=== PATIENT | male | born 1965 | race Hispanic/Latino ===

== ENCOUNTER 2018-11-09 20:26 | Emergency (ER) | payer SELFPAY ==
[~2018-11-09 20:26] MED LIST: LEVO500T2 PO
[2018-11-09] MEDS ORDERED: CEPHALEXIN 500 MG CAPSULE ONE (20:58)
[2018-11-09] MEDS ORDERED: SULFAMETHOX-TMP DS 800/160 TAB ONE (20:58)
[2018-11-09] MEDS ORDERED: HYDROCODONE/ACETAMINOPHEN 10/325 MG TAB ONE (20:59)
== END 2018-11-09 21:52 | disposition home or self-care (01) ==
LOC: EDH 20:26
DX: N49.2 Inflammatory disorders of scrotum (principal); I10 Essential (primary) hypertension; E11.9 Type 2 diabetes mellitus without complications; E66.01 Morbid (severe) obesity due to excess calories; Z68.44 Body mass index [BMI] 60.0-69.9, adult; Z72.0 Tobacco use

== ENCOUNTER 2019-09-27 16:49 | Emergency (ER) | payer SELFPAY ==
[2019-09-27 17:37] LABS: BASOPHILS % (AUTO) 1.1 % (0.0-5.0); HEMATOCRIT 41.9 % (42-54); LYMPHOCYTES % (AUTO) 32.3 % (21.0-51.0); MEAN CORPUSCULAR HEMOGLOBIN 35.2 pg (27.0-33.0); MEAN CORPUSCULAR HGB CONC 35.1 g/dL (32.0-36.0); MEAN CORPUSCULAR VOLUME 100.3 fL (79-99); MONOCYTES % (AUTO) 7.1 % (3.0-13.0); NEUTROPHILS % (AUTO) 57.5 % (40.0-77.0); NUCLEATED RED BLOOD CELLS 0.2 % (0.0-0.19); PLATELET COUNT (AUTO) 97 K/uL (130-400); RED BLOOD CELL COUNT(AUTO) 4.18 MIL/uL (4.50-6.20); RED CELL DISTRIBUTION WIDTH 15.1 % (11.0-15.5); WHITE BLOOD COUNT (AUTO) 6.7 K/uL (4.8-10.8)
[2019-09-27 17:47] LABS: CREATININE 1.3 mg/dL (0.5-1.5); POTASSIUM 4.6 mmol/L (3.5-5.1)
[2019-09-27 17:49] LABS: INR 1.02 (0.85-1.15); PARTIAL THROMBOPLASTIN TIME 25.4 SEC (26.3-35.5); PROTHROMBIN TIME 10.7 SEC (9.6-11.6)
[2019-09-27] MEDS ORDERED: IOHEXOL-350 75 ML VIAL IV ONE (17:53)
== END 2019-09-27 19:52 | disposition home or self-care (01) ==
LOC: EDH 16:49
DX: K42.9 Umbilical hernia without obstruction or gangrene (principal); E11.9 Type 2 diabetes mellitus without complications; I10 Essential (primary) hypertension; E66.01 Morbid (severe) obesity due to excess calories; Z72.0 Tobacco use; Z68.44 Body mass index [BMI] 60.0-69.9, adult
CPT/HCPCS: 36415; 74177; 80048; 85025; 85610; 85730; 99285; Q9967

== ENCOUNTER 2021-03-12 08:17 | Inpatient (IN) | payer OTHER, SELFPAY ==
[~2021-03-12] VITALS: Ht 154.9 cm; Wt 226.8 kg
[2021-03-12 08:35] LABS: BASOPHILS % (AUTO) 0.4 % (0.0-5.0); EOSINOPHILS % (AUTO) 0.6 % (0.0-8.0); HEMATOCRIT 36.4 % (42-54); LYMPHOCYTES % (AUTO) 7.4 % (21.0-51.0); MEAN CORPUSCULAR HGB CONC 33.2 g/dL (32.0-36.0); MEAN CORPUSCULAR VOLUME 99.2 fL (79-99); MONOCYTES % (AUTO) 5.8 % (3.0-13.0); PLATELET COUNT (AUTO) 72 K/uL (130-400); RED BLOOD CELL COUNT(AUTO) 3.67 MIL/uL (4.50-6.20); RED CELL DISTRIBUTION WIDTH 16.2 % (11.0-15.5); WHITE BLOOD COUNT (AUTO) 14.1 K/uL (4.8-10.8)
[2021-03-12 08:45] LABS: BILIRUBIN,TOTAL 1.2 mg/dL (0.2-1.0); CREATININE 1.9 mg/dL (0.5-1.5); POTASSIUM 3.9 mmol/L (3.5-5.1)
[2021-03-12] MEDS ORDERED: VANCOMYCIN 1G/250ML KIT 250 ML IV ONE ×2 (09:08→10:06)
[2021-03-12] MEDS ORDERED: ZOSYN 3.375GM+NS 50ML 50 ML IV ONE (09:08)
[2021-03-12] MEDS ORDERED: 0.9%NACL 1000ML 1,000 ML IV ONE (09:37)
[2021-03-12] MEDS ORDERED: VANCOMYCIN 1G/250ML KIT 250 ML IV SCH ×2 (09:45→13:30)
[2021-03-12] MEDS ORDERED: LACTULOSE 20 GM/30 ML UDCUP PO PRN (13:30)
[2021-03-12] MEDS ORDERED: ACETAMINOPHEN WITH CODEINE 1 TAB TAB PO PRN (13:30)
[2021-03-12] MEDS ORDERED: RENAL DOSE IV SCH (13:30)
[2021-03-12] MEDS ORDERED: ACETAMINOPHEN 325 MG TAB PO PRN ×2 (13:30)
[2021-03-12] MEDS ORDERED: VANCOMYCIN PROTOCOL PER PHARMACY IV PRN (13:30)
[2021-03-12] MEDS ORDERED: ONDANSETRON 4MG INJ IV PRN (13:30)
[2021-03-12] MEDS ORDERED: COMPOUND IV REFRIGERATED 1 EACH IVSOLN MISC PRN (16:30)
[2021-03-12] MEDS: INSULIN HUMULIN R 100 UNIT/ML 3ML SQ SCH ×2 (16:30→21:00)
[2021-03-12] MEDS ORDERED: VANCOMYCIN 1G 1.5 GM in 0.9% NACL 250ML 250 ML IV ONE (16:30)
[2021-03-12 16:50] VITALS: BP 92/62
[2021-03-12] MEDS: CEFEPIME HCL 2 GM VIAL IVP SCH (17:05)
[2021-03-12 20:00] VITALS: BP 85/51
[2021-03-12] MEDS: TERBINAFINE HCL 15 GM TUBE TP SCH (21:00)
[2021-03-12] MEDS: FAMOTIDINE 20MG TAB PO SCH (21:07)
[2021-03-12] MEDS: ACETAMINOPHEN WITH CODEINE 1 TAB TAB PO PRN (21:16)
[2021-03-13 00:23] VITALS: BP 76/40
[2021-03-13] MEDS: CEFEPIME HCL 2 GM VIAL IVP SCH ×2 (02:48→13:23)
[2021-03-13 04:55] VITALS: BP 132/68
[2021-03-13 05:50] LABS: BASOPHILS % (AUTO) 0.4 % (0.0-5.0); HEMATOCRIT 36.8 % (42-54); LYMPHOCYTES % (AUTO) 15.1 % (21.0-51.0); MEAN CORPUSCULAR HEMOGLOBIN 32.1 pg (27.0-33.0); MEAN CORPUSCULAR HGB CONC 31.3 g/dL (32.0-36.0); MEAN CORPUSCULAR VOLUME 102.8 fL (79-99); MONOCYTES % (AUTO) 5.9 % (3.0-13.0); NEUTROPHILS % (AUTO) 76.2 % (40.0-77.0); PLATELET COUNT (AUTO) 67 K/uL (130-400); RED BLOOD CELL COUNT(AUTO) 3.58 MIL/uL (4.50-6.20); RED CELL DISTRIBUTION WIDTH 16.4 % (11.0-15.5)
[2021-03-13] MEDS: INSULIN HUMULIN R 100 UNIT/ML 3ML SQ SCH ×4 (07:30→20:18)
[2021-03-13 08:00] VITALS: BP 139/62
[2021-03-13 08:24] LABS: CREATININE 2.1 mg/dL (0.5-1.5); POTASSIUM 4.6 mmol/L (3.5-5.1)
[2021-03-13] MEDS: TERBINAFINE HCL 15 GM TUBE TP SCH ×2 (09:00→20:36)
[2021-03-13] MEDS: ENOXAPARIN SODIUM 40 MG/0.4 ML SYRINGE SQ SCH (09:00)
[2021-03-13] MEDS ORDERED: VANCOMYCIN 750MG + NS 250 ML IV SCH ×2 (09:00)
[2021-03-13] MEDS: FLUCONAZOLE 200 MG/NS 100 ML 100 ML IV SCH (10:39)
[2021-03-13] MEDS ORDERED: 0.9%NACL 1000ML 1,000 ML IV ONE (10:45)
[2021-03-13 11:53] VITALS: BP 94/64
[2021-03-13 16:00] VITALS: BP 117/39
[2021-03-13] MEDS ORDERED: METF-446 PO (19:40)
[2021-03-13] MEDS ORDERED: ATOR10TA69 PO (19:40)
[2021-03-13] MEDS ORDERED: LISI20TA24 PO (19:40)
[2021-03-13] MEDS ORDERED: FOLI1 PO (19:40)
[2021-03-13] MEDS ORDERED: ASPI-1197 PO (19:40)
[2021-03-13 20:00] VITALS: BP 114/73
[2021-03-13] MEDS: FAMOTIDINE 20MG TAB PO SCH (20:21)
[2021-03-14] VITALS (7 sets, daily range): BP systolic 95–130; BP diastolic 45–69
[2021-03-14] MEDS: CEFEPIME HCL 2 GM VIAL IVP SCH ×2 (01:35→15:36)
[2021-03-14] MEDS: INSULIN HUMULIN R 100 UNIT/ML 3ML SQ SCH ×4 (05:11→20:18)
[2021-03-14 05:21] LABS: BASOPHILS % (AUTO) 0.7 % (0.0-5.0); EOSINOPHILS % (AUTO) 1.1 % (0.0-8.0); HEMATOCRIT 33.6 % (42-54); LYMPHOCYTES % (AUTO) 15.1 % (21.0-51.0); MEAN CORPUSCULAR HEMOGLOBIN 32.5 pg (27.0-33.0); MEAN CORPUSCULAR HGB CONC 32.1 g/dL (32.0-36.0); MEAN CORPUSCULAR VOLUME 101.2 fL (79-99); MONOCYTES % (AUTO) 7.9 % (3.0-13.0); NEUTROPHILS % (AUTO) 74.5 % (40.0-77.0); PLATELET COUNT (AUTO) 49 K/uL (130-400); RED BLOOD CELL COUNT(AUTO) 3.32 MIL/uL (4.50-6.20); RED CELL DISTRIBUTION WIDTH 16.3 % (11.0-15.5); WHITE BLOOD COUNT (AUTO) 7.2 K/uL (4.8-10.8)
[2021-03-14 05:33] LABS: CREATININE 1.6 mg/dL (0.5-1.5); POTASSIUM 4.6 mmol/L (3.5-5.1)
[2021-03-14 05:53] LABS: CRP QUANTITATIVE 175.3 mg/L (0.00-9.0)
[2021-03-14 07:23] LABS: CHOLESTEROL 114 mg/dL (<200); HDL CHOLESTEROL 13 mg/dL (29-71); LDL DIRECT 67 mg/dL (0-99); TRIGLYCERIDES 110 mg/dL (30-200)
[2021-03-14] MEDS: ENOXAPARIN SODIUM 40 MG/0.4 ML SYRINGE SQ SCH (09:00)
[2021-03-14] MEDS: LISINOPRIL 20 MG TABLET PO SCH (09:00)
[2021-03-14] MEDS: ASPIRIN 81MG CHEW TAB PO SCH (09:00)
[2021-03-14] MEDS: FLUCONAZOLE 200 MG/NS 100 ML 100 ML IV SCH (09:57)
[2021-03-14] MEDS: FOLIC ACID 1 MG TABLET PO SCH (09:57)
[2021-03-14] MEDS: TERBINAFINE HCL 15 GM TUBE TP SCH ×2 (09:58→20:13)
[2021-03-14] MEDS: VANCOMYCIN 1G 1.75 GM in 0.9% NACL 250ML 250 ML IV SCH (09:59)
[2021-03-14] MEDS ORDERED: HONEY 1 APPL/ML TUBE TP ONE (13:43)
[2021-03-14] MEDS: ATORVASTATIN 10 MG TABLET PO SCH (20:12)
[2021-03-14] MEDS: FAMOTIDINE 20MG TAB PO SCH (20:12)
[2021-03-15] MEDS: CEFEPIME HCL 2 GM VIAL IVP SCH ×2 (02:13→13:30)
[2021-03-15 04:00] VITALS: BP 100/50
[2021-03-15 05:27] LABS: BASOPHILS % (AUTO) 0.6 % (0.0-5.0); EOSINOPHILS % (AUTO) 1.9 % (0.0-8.0); LYMPHOCYTES % (AUTO) 21.4 % (21.0-51.0); MEAN CORPUSCULAR HEMOGLOBIN 32.9 pg (27.0-33.0); MEAN CORPUSCULAR HGB CONC 32.4 g/dL (32.0-36.0); MEAN CORPUSCULAR VOLUME 101.8 fL (79-99); MONOCYTES % (AUTO) 9.8 % (3.0-13.0); NEUTROPHILS % (AUTO) 65.9 % (40.0-77.0); PLATELET COUNT (AUTO) 54 K/uL (130-400); RED BLOOD CELL COUNT(AUTO) 3.34 MIL/uL (4.50-6.20); RED CELL DISTRIBUTION WIDTH 16.5 % (11.0-15.5); WHITE BLOOD COUNT (AUTO) 4.7 K/uL (4.8-10.8)
[2021-03-15 05:49] LABS: CREATININE 1.3 mg/dL (0.5-1.5); CRP QUANTITATIVE 174.9 mg/L (0.00-9.0); POTASSIUM 4.7 mmol/L (3.5-5.1)
[2021-03-15] MEDS: INSULIN HUMULIN R 100 UNIT/ML 3ML SQ SCH ×4 (07:30→21:07)
[2021-03-15 08:00] VITALS: BP 126/72
[2021-03-15] MEDS: ENOXAPARIN SODIUM 40 MG/0.4 ML SYRINGE SQ SCH (09:00)
[2021-03-15] MEDS: FOLIC ACID 1 MG TABLET PO SCH (09:31)
[2021-03-15] MEDS: ASPIRIN 81MG CHEW TAB PO SCH (09:31)
[2021-03-15] MEDS: LISINOPRIL 20 MG TABLET PO SCH (09:31)
[2021-03-15] MEDS: TERBINAFINE HCL 15 GM TUBE TP SCH ×2 (09:32→21:04)
[2021-03-15] MEDS: FLUCONAZOLE 200 MG/NS 100 ML 100 ML IV SCH (09:32)
[2021-03-15] MEDS: HONEY 1 APPL/ML TUBE TP SCH (09:33)
[2021-03-15] MEDS: VANCOMYCIN 1G 1.75 GM in 0.9% NACL 250ML 250 ML IV SCH (09:38)
[2021-03-15 12:00] VITALS: BP 111/67
[2021-03-15] MEDS ORDERED: DIATR MEGLU/DIATRIZOATE SODIUM 30 ML BOTTLE ONE (15:10)
[2021-03-15 16:00] VITALS: BP 125/75
[2021-03-15] MEDS ORDERED: IOHEXOL 350 MG/ML 100ML INFUS..BTL IV ONE (17:28)
[2021-03-15 19:15] VITALS: BP 106/82
[2021-03-15] MEDS: FAMOTIDINE 20MG TAB PO SCH (20:57)
[2021-03-15] MEDS: ATORVASTATIN 10 MG TABLET PO SCH (20:57)
[2021-03-15] MEDS: ACETAMINOPHEN WITH CODEINE 1 TAB TAB PO PRN (21:04)
[2021-03-15 23:55] VITALS: BP 86/52
[2021-03-16] MEDS: CEFEPIME HCL 2 GM VIAL IVP SCH ×2 (02:18→13:45)
[2021-03-16 04:09] VITALS: BP 114/61
[2021-03-16] MEDS: INSULIN HUMULIN R 100 UNIT/ML 3ML SQ SCH ×4 (07:30→21:00)
[2021-03-16 08:00] VITALS: BP 97/46
[2021-03-16] MEDS: FOLIC ACID 1 MG TABLET PO SCH (08:39)
[2021-03-16] MEDS: ASPIRIN 81MG CHEW TAB PO SCH (08:39)
[2021-03-16] MEDS: FLUCONAZOLE 200 MG/NS 100 ML 100 ML IV SCH (08:39)
[2021-03-16] MEDS: LISINOPRIL 20 MG TABLET PO SCH (08:39)
[2021-03-16] MEDS: ENOXAPARIN SODIUM 40 MG/0.4 ML SYRINGE SQ SCH (08:48)
[2021-03-16] MEDS: TERBINAFINE HCL 15 GM TUBE TP SCH ×2 (08:48→21:29)
[2021-03-16] MEDS: HONEY 1 APPL/ML TUBE TP SCH (08:50)
[2021-03-16] MEDS: VANCOMYCIN 1G 1.75 GM in 0.9% NACL 250ML 250 ML IV SCH (08:53)
[2021-03-16] MEDS ORDERED: VANCOMYCIN 1G 1.25 GM in 0.9% NACL 250ML 250 ML IV SCH (09:45)
[2021-03-16 11:45] VITALS: BP 102/52
[2021-03-16 16:00] VITALS: BP 104/57
[2021-03-16] MEDS: ATORVASTATIN 10 MG TABLET PO SCH (21:28)
[2021-03-16] MEDS: FAMOTIDINE 20MG TAB PO SCH (21:28)
[2021-03-16 23:52] VITALS: BP 120/59
[2021-03-17] MEDS: CEFEPIME HCL 2 GM VIAL IVP SCH ×2 (02:40→13:32)
[2021-03-17 03:58] VITALS: BP 120/56
[2021-03-17] MEDS: INSULIN HUMULIN R 100 UNIT/ML 3ML SQ SCH ×4 (05:37→20:58)
[2021-03-17 07:07] VITALS: BP 109/58
[2021-03-17] MEDS: ENOXAPARIN SODIUM 40 MG/0.4 ML SYRINGE SQ SCH (09:00)
[2021-03-17] MEDS: LISINOPRIL 20 MG TABLET PO SCH (09:49)
[2021-03-17] MEDS: FLUCONAZOLE 200 MG/NS 100 ML 100 ML IV SCH (09:49)
[2021-03-17] MEDS: ASPIRIN 81MG CHEW TAB PO SCH (09:49)
[2021-03-17] MEDS: FOLIC ACID 1 MG TABLET PO SCH (09:49)
[2021-03-17] MEDS: VANCOMYCIN 1G 1.25 GM in 0.9% NACL 250ML 250 ML IV SCH ×2 (09:57→20:57)
[2021-03-17] MEDS: TERBINAFINE HCL 15 GM TUBE TP SCH ×2 (10:25→21:00)
[2021-03-17] MEDS: HONEY 1 APPL/ML TUBE TP SCH (10:26)
[2021-03-17 10:43] VITALS: BP 130/69
[2021-03-17 15:44] VITALS: BP 110/51
[2021-03-17 20:00] VITALS: BP 109/57
[2021-03-17] MEDS: FAMOTIDINE 20MG TAB PO SCH (20:57)
[2021-03-17] MEDS: ATORVASTATIN 10 MG TABLET PO SCH (20:57)
[2021-03-18 00:50] VITALS: BP 95/56
[2021-03-18] MEDS: CEFEPIME HCL 2 GM VIAL IVP SCH ×2 (01:30→13:06)
[2021-03-18 04:58] LABS: BASOPHILS % (AUTO) 1.1 % (0.0-5.0); EOSINOPHILS % (AUTO) 2.2 % (0.0-8.0); LYMPHOCYTES % (AUTO) 26.8 % (21.0-51.0); MEAN CORPUSCULAR HGB CONC 32.8 g/dL (32.0-36.0); MEAN CORPUSCULAR VOLUME 100.6 fL (79-99); MONOCYTES % (AUTO) 9.2 % (3.0-13.0); NEUTROPHILS % (AUTO) 59.9 % (40.0-77.0); PLATELET COUNT (AUTO) 70 K/uL (130-400); RED BLOOD CELL COUNT(AUTO) 3.18 MIL/uL (4.50-6.20); RED CELL DISTRIBUTION WIDTH 15.9 % (11.0-15.5); WHITE BLOOD COUNT (AUTO) 3.6 K/uL (4.8-10.8)
[2021-03-18 05:21] LABS: CREATININE 1.2 mg/dL (0.5-1.5); CRP QUANTITATIVE 89.6 mg/L (0.00-9.0); POTASSIUM 4.3 mmol/L (3.5-5.1)
[2021-03-18 05:58] VITALS: BP 120/59
[2021-03-18] MEDS: INSULIN HUMULIN R 100 UNIT/ML 3ML SQ SCH ×4 (06:53→21:00)
[2021-03-18 07:00] LABS: ERYTHROCYTE SEDIMENTATION RATE 75 MM/HR (0-20)
[2021-03-18] MEDS: FLUCONAZOLE 200 MG/NS 100 ML 100 ML IV SCH (07:15)
[2021-03-18] MEDS: VANCOMYCIN 1G 1.25 GM in 0.9% NACL 250ML 250 ML IV SCH ×2 (07:16→19:17)
[2021-03-18] MEDS: LISINOPRIL 20 MG TABLET PO SCH (07:16)
[2021-03-18] MEDS: ENOXAPARIN SODIUM 40 MG/0.4 ML SYRINGE SQ SCH (07:16)
[2021-03-18] MEDS: TERBINAFINE HCL 15 GM TUBE TP SCH ×2 (07:16→22:33)
[2021-03-18] MEDS: FOLIC ACID 1 MG TABLET PO SCH (07:16)
[2021-03-18] MEDS: ASPIRIN 81MG CHEW TAB PO SCH (07:16)
[2021-03-18] MEDS: HONEY 1 APPL/ML TUBE TP SCH (07:17)
[2021-03-18 07:30] VITALS: BP 105/57
[2021-03-18 11:00] VITALS: BP 95/56
[2021-03-18] MEDS ORDERED: VANCOMYCIN 750MG + NS 250 ML IV SCH ×2 (15:45)
[2021-03-18 16:00] VITALS: BP 144/51
[2021-03-18] MEDS: ATORVASTATIN 10 MG TABLET PO SCH (19:16)
[2021-03-18] MEDS: FAMOTIDINE 20MG TAB PO SCH (19:16)
[2021-03-18] MEDS: ACETAMINOPHEN WITH CODEINE 1 TAB TAB PO PRN (19:24)
[2021-03-18 20:00] VITALS: BP 115/60
[2021-03-19 00:01] VITALS: BP 100/54
[2021-03-19] MEDS: CEFEPIME HCL 2 GM VIAL IVP SCH ×2 (01:00→12:22)
[2021-03-19 04:10] VITALS: BP 106/50
[2021-03-19 05:09] LABS: EOSINOPHILS % (AUTO) 2.7 % (0.0-8.0); HEMATOCRIT 30.5 % (42-54); LYMPHOCYTES % (AUTO) 31.9 % (21.0-51.0); MEAN CORPUSCULAR HEMOGLOBIN 33.2 pg (27.0-33.0); MEAN CORPUSCULAR HGB CONC 32.8 g/dL (32.0-36.0); MEAN CORPUSCULAR VOLUME 101.3 fL (79-99); MONOCYTES % (AUTO) 10.1 % (3.0-13.0); NEUTROPHILS % (AUTO) 53.6 % (40.0-77.0); PLATELET COUNT (AUTO) 72 K/uL (130-400); RED BLOOD CELL COUNT(AUTO) 3.01 MIL/uL (4.50-6.20); RED CELL DISTRIBUTION WIDTH 15.9 % (11.0-15.5)
[2021-03-19 05:21] LABS: CREATININE 1.1 mg/dL (0.5-1.5); POTASSIUM 4.1 mmol/L (3.5-5.1)
[2021-03-19 05:40] LABS: BAND NEUTROPHILS % (MANUAL) 5 % (0-2); BASOPHILS % (MANUAL) 2 % (0-2); EOSINOPHILS % (MANUAL) 1 % (1-6); LYMPHOCYTES % (MANUAL) 30 % (22-44); MAN.DIFF COMMENT-IMPRESSION MANUAL DIFFERENTIAL; METAMYELOCYTES % 1 % (0-0); MONOCYTES % (MANUAL) 6 % (2-9); SEGMENTED NEUTROPHILS % 55 % (40-70)
[2021-03-19] MEDS: INSULIN HUMULIN R 100 UNIT/ML 3ML SQ SCH ×4 (06:08→21:00)
[2021-03-19] MEDS: LISINOPRIL 20 MG TABLET PO SCH (07:01)
[2021-03-19] MEDS: ASPIRIN 81MG CHEW TAB PO SCH (07:01)
[2021-03-19] MEDS: FOLIC ACID 1 MG TABLET PO SCH (07:01)
[2021-03-19] MEDS: ENOXAPARIN SODIUM 40 MG/0.4 ML SYRINGE SQ SCH (07:01)
[2021-03-19] MEDS: VANCOMYCIN 1G 1.25 GM in 0.9% NACL 250ML 250 ML IV SCH ×2 (07:02→21:12)
[2021-03-19] MEDS: FLUCONAZOLE 200 MG/NS 100 ML 100 ML IV SCH (07:02)
[2021-03-19] MEDS: TERBINAFINE HCL 15 GM TUBE TP SCH ×2 (07:02→21:11)
[2021-03-19] MEDS: HONEY 1 APPL/ML TUBE TP SCH (07:02)
[2021-03-19 07:30] VITALS: BP 105/60
[2021-03-19 12:00] VITALS: BP 111/70
[2021-03-19] MEDS: ACETAMINOPHEN WITH CODEINE 1 TAB TAB PO PRN (12:22)
[2021-03-19 16:00] VITALS: BP 96/52
[2021-03-19 20:00] VITALS: BP 140/50
[2021-03-19] MEDS: FAMOTIDINE 20MG TAB PO SCH (21:11)
[2021-03-19] MEDS: ATORVASTATIN 10 MG TABLET PO SCH (21:11)
[2021-03-20] VITALS: BP 106/52
[2021-03-20] MEDS: CEFEPIME HCL 2 GM VIAL IVP SCH ×2 (00:08→13:11)
[2021-03-20 04:00] VITALS: BP 96/60
[2021-03-20] MEDS: ACETAMINOPHEN WITH CODEINE 1 TAB TAB PO PRN (04:07)
[2021-03-20 05:53] LABS: BASOPHILS % (AUTO) 1.3 % (0.0-5.0); EOSINOPHILS % (AUTO) 2.5 % (0.0-8.0); HEMATOCRIT 31.2 % (42-54); LYMPHOCYTES % (AUTO) 31.3 % (21.0-51.0); MEAN CORPUSCULAR HEMOGLOBIN 32.1 pg (27.0-33.0); MEAN CORPUSCULAR HGB CONC 31.7 g/dL (32.0-36.0); MEAN CORPUSCULAR VOLUME 101.3 fL (79-99); MONOCYTES % (AUTO) 8.8 % (3.0-13.0); NEUTROPHILS % (AUTO) 55.5 % (40.0-77.0); PLATELET COUNT (AUTO) 81 K/uL (130-400); RED BLOOD CELL COUNT(AUTO) 3.08 MIL/uL (4.50-6.20); RED CELL DISTRIBUTION WIDTH 15.9 % (11.0-15.5); WHITE BLOOD COUNT (AUTO) 3.2 K/uL (4.8-10.8)
[2021-03-20 06:08] LABS: POTASSIUM 4.2 mmol/L (3.5-5.1)
[2021-03-20] MEDS: INSULIN HUMULIN R 100 UNIT/ML 3ML SQ SCH ×4 (06:41→21:00)
[2021-03-20 07:55] VITALS: BP 104/63
[2021-03-20] MEDS: VANCOMYCIN 1G 1.25 GM in 0.9% NACL 250ML 250 ML IV SCH ×2 (08:35→21:10)
[2021-03-20] MEDS: FOLIC ACID 1 MG TABLET PO SCH (08:35)
[2021-03-20] MEDS: FAMOTIDINE 20MG TAB PO SCH ×2 (08:36→21:10)
[2021-03-20] MEDS: ENOXAPARIN SODIUM 40 MG/0.4 ML SYRINGE SQ SCH (08:39)
[2021-03-20] MEDS: LISINOPRIL 20 MG TABLET PO SCH (08:39)
[2021-03-20] MEDS: ASPIRIN 81MG CHEW TAB PO SCH (08:40)
[2021-03-20] MEDS: HONEY 1 APPL/ML TUBE TP SCH (09:37)
[2021-03-20] MEDS: TERBINAFINE HCL 15 GM TUBE TP SCH ×2 (09:37→22:02)
[2021-03-20] MEDS: FLUCONAZOLE 200 MG/NS 100 ML 100 ML IV SCH (09:40)
[2021-03-20 11:28] VITALS: BP 116/54
[2021-03-20 16:00] VITALS: BP 108/48
[2021-03-20 17:35] LABS: % IRON SATURATION 15.9 % (30-44)
[2021-03-20 20:51] VITALS: BP 108/38
[2021-03-20] MEDS: ATORVASTATIN 10 MG TABLET PO SCH (21:09)
[2021-03-21] VITALS (7 sets, daily range): BP systolic 89–133; BP diastolic 45–73
[2021-03-21] MEDS: CEFEPIME HCL 2 GM VIAL IVP SCH ×2 (02:15→14:39)
[2021-03-21] MEDS: INSULIN HUMULIN R 100 UNIT/ML 3ML SQ SCH ×4 (06:10→21:00)
[2021-03-21 06:19] LABS: BASOPHILS % (AUTO) 1.4 % (0.0-5.0); EOSINOPHILS % (AUTO) 2.5 % (0.0-8.0); HEMATOCRIT 33.3 % (42-54); LYMPHOCYTES % (AUTO) 33.3 % (21.0-51.0); MEAN CORPUSCULAR HEMOGLOBIN 32.3 pg (27.0-33.0); MEAN CORPUSCULAR HGB CONC 32.1 g/dL (32.0-36.0); MEAN CORPUSCULAR VOLUME 100.6 fL (79-99); MONOCYTES % (AUTO) 8.1 % (3.0-13.0); NEUTROPHILS % (AUTO) 54.4 % (40.0-77.0); PLATELET COUNT (AUTO) 92 K/uL (130-400); RED BLOOD CELL COUNT(AUTO) 3.31 MIL/uL (4.50-6.20); RED CELL DISTRIBUTION WIDTH 15.8 % (11.0-15.5); WHITE BLOOD COUNT (AUTO) 3.6 K/uL (4.8-10.8)
[2021-03-21 06:28] LABS: CREATININE 1.1 mg/dL (0.5-1.5); POTASSIUM 4.1 mmol/L (3.5-5.1)
[2021-03-21] MEDS: ENOXAPARIN SODIUM 40 MG/0.4 ML SYRINGE SQ SCH (09:00)
[2021-03-21] MEDS: LISINOPRIL 20 MG TABLET PO SCH (09:00)
[2021-03-21] MEDS: FOLIC ACID 1 MG TABLET PO SCH (09:48)
[2021-03-21] MEDS: FLUCONAZOLE 200 MG/NS 100 ML 100 ML IV SCH (09:48)
[2021-03-21] MEDS: ASPIRIN 81MG CHEW TAB PO SCH (09:48)
[2021-03-21] MEDS: VANCOMYCIN 1G 1.25 GM in 0.9% NACL 250ML 250 ML IV SCH ×2 (09:50→21:09)
[2021-03-21] MEDS: HONEY 1 APPL/ML TUBE TP SCH (10:39)
[2021-03-21] MEDS: TERBINAFINE HCL 15 GM TUBE TP SCH ×2 (14:40→21:10)
[2021-03-21] MEDS: FAMOTIDINE 20MG TAB PO SCH (21:08)
[2021-03-21] MEDS: ATORVASTATIN 10 MG TABLET PO SCH (21:09)
[2021-03-22] MEDS: CEFEPIME HCL 2 GM VIAL IVP SCH ×2 (02:06→13:53)
[2021-03-22 03:51] VITALS: BP 126/67
[2021-03-22] MEDS: INSULIN HUMULIN R 100 UNIT/ML 3ML SQ SCH ×2 (06:37→11:30)
[2021-03-22 08:00] VITALS: BP 99/59
[2021-03-22 08:16] LABS: BASOPHILS % (AUTO) 1.1 % (0.0-5.0); EOSINOPHILS % (AUTO) 1.9 % (0.0-8.0); LYMPHOCYTES % (AUTO) 29.8 % (21.0-51.0); MEAN CORPUSCULAR HGB CONC 33.1 g/dL (32.0-36.0); MEAN CORPUSCULAR VOLUME 99.7 fL (79-99); MONOCYTES % (AUTO) 8.9 % (3.0-13.0); PLATELET COUNT (AUTO) 93 K/uL (130-400); RED BLOOD CELL COUNT(AUTO) 3.21 MIL/uL (4.50-6.20); RED CELL DISTRIBUTION WIDTH 15.7 % (11.0-15.5); WHITE BLOOD COUNT (AUTO) 3.7 K/uL (4.8-10.8)
[2021-03-22 08:23] LABS: POTASSIUM 4.2 mmol/L (3.5-5.1)
[2021-03-22] MEDS: ENOXAPARIN SODIUM 40 MG/0.4 ML SYRINGE SQ SCH (09:00)
[2021-03-22] MEDS: HONEY 1 APPL/ML TUBE TP SCH ×2 (09:00→18:30)
[2021-03-22] MEDS: VANCOMYCIN 1G 1.25 GM in 0.9% NACL 250ML 250 ML IV SCH (09:00)
[2021-03-22] MEDS: TERBINAFINE HCL 15 GM TUBE TP SCH (09:00)
[2021-03-22] MEDS: LISINOPRIL 20 MG TABLET PO SCH (09:00)
[2021-03-22] MEDS: ASPIRIN 81MG CHEW TAB PO SCH (11:16)
[2021-03-22] MEDS: FOLIC ACID 1 MG TABLET PO SCH (11:16)
[2021-03-22] MEDS: FLUCONAZOLE 200 MG/NS 100 ML 100 ML IV SCH (11:17)
[2021-03-22 12:20] VITALS: BP 90/60
[2021-03-22] MEDS ORDERED: CEPH500B PO (15:08)
[2021-03-22] MEDS ORDERED: DOXY100T2 PO (15:08)
[2021-03-22 16:00] VITALS: BP 108/65
== END 2021-03-22 18:45 | disposition home or self-care (01) | DRG 602 ==
LOC: EDH 08:17 → EDHIP 08:18 → 3BH 16:27
PROVIDERS: ADMIT Internal Medicine; ATTEND Internal Medicine
DX: L03.116 Cellulitis of left lower limb (principal); E43 Unspecified severe protein-calorie malnutrition; E87.2 Acidosis; L97.329 Non-pressure chronic ulcer of left ankle with unspecified severity; Z68.45 Body mass index [BMI] 70 or greater, adult; E11.622 Type 2 diabetes mellitus with other skin ulcer; I89.0 Lymphedema, not elsewhere classified; I87.309 Chronic venous hypertension (idiopathic) without complications of unspecified lower extremity; D72.819 Decreased white blood cell count, unspecified; I10 Essential (primary) hypertension; I87.8 Other specified disorders of veins; F17.210 Nicotine dependence, cigarettes, uncomplicated; K43.9 Ventral hernia without obstruction or gangrene; E66.01 Morbid (severe) obesity due to excess calories; K42.9 Umbilical hernia without obstruction or gangrene; D53.9 Nutritional anemia, unspecified; R53.81 Other malaise; R74.8 Abnormal levels of other serum enzymes; S90.822A Blister (nonthermal), left foot, initial encounter; X58.XXXA Exposure to other specified factors, initial encounter; D69.6 Thrombocytopenia, unspecified; J98.6 Disorders of diaphragm; L02.416 Cutaneous abscess of left lower limb; R16.2 Hepatomegaly with splenomegaly, not elsewhere classified; E78.5 Hyperlipidemia, unspecified; Z20.822 Contact with and (suspected) exposure to COVID-19; Z79.899 Other long term (current) drug therapy; Z79.82 Long term (current) use of aspirin; Z82.0 Family history of epilepsy and other diseases of the nervous system; Z83.3 Family history of diabetes mellitus; Y93.89 Activity, other specified; Y92.89 Other specified places as the place of occurrence of the external cause; Y99.8 Other external cause status
CPT/HCPCS: 36415; 70450; 71045; 73600; 74177; 80048; 80053; 80061; 80202; 82728; 82948; 83540; 83550; 83605; 84145; 84484; 85025; 85651; 86140; 87040; 87426; 93005; 93971; G0378; J0692; J1450; J1650; J1815; J2543; J3370; J7030; J7050; Q9963; Q9967; U0003

== ENCOUNTER 2021-05-11 23:25 | Inpatient (IN) | payer OTHER ==
[~2021-05-11] VITALS: Ht 180.3 cm; Wt 226.8 kg
[~2021-05-11 23:25] MED LIST changes: +ASPI-1197 PO; +ATOR10TA69 PO; +CEPH500B PO; +DOXY100T2 PO; +FOLI1 PO; -LEVO500T2 PO; +LISI20TA24 PO; +METF-446 PO
[2021-05-12] VITALS (10 sets, daily range): BP systolic 87–119; BP diastolic 9–65
[2021-05-12] MEDS ORDERED: CEFTRIAXONE IV ONE (01:30)
[2021-05-12] MEDS ORDERED: LACTATED RINGERS 1000ML 1,000 ML IV ONE (01:30)
[2021-05-12] MEDS ORDERED: ACETAMINOPHEN 500 MG TABLET PO ONE (01:30)
[2021-05-12] MEDS ORDERED: SODIUM CHLORIDE 0.9% IV ONE (01:30)
[2021-05-12 01:46] LABS: ABG HCO3 22.9 mmol/L (21.0-28.0); ABG OXYGEN SATURATION 93.3 % (95.0-99.0); ABG PCO2 40 mmHg (35-48)
[2021-05-12 01:48] LABS: APPEARANCE,URINE Turbid (CLEAR); BILIRUBIN,URINE Moderate (NEGATIVE); COLOR,URINE Dark Yellow (YELLOW); GLUCOSE, URINE (UA) Negative (NEGATIVE); KETONES,URINE Trace mg/dL (NEGATIVE); LEUKOCYTE ESTERASE ,URINE Large (NEGATIVE); NITRATE,URINE Negative (NEGATIVE); OCCULT BLOOD,URINE Large (NEGATIVE); PROTEIN,URINE 300 mg/dL (NEGATIVE)
[2021-05-12 01:58] LABS: RBC,URINE TNTC /HPF (0-1); WBC,URINE TNTC /HPF (0-1)
[2021-05-12 01:59] LABS: BACTERIA,URINE Moderate /HPF (None Seen); SQUAMOUS EPITHELIAL CELL,UR 0-2 /HPF (0-2)
[2021-05-12] MEDS ORDERED: ACETAMINOPHEN 500 MG TABLET ONE (03:11)
[2021-05-12] MEDS ORDERED: CEFTRIAXONE 2GM VIAL ONE (03:11)
[2021-05-12] MEDS ORDERED: SODIUM CHLORIDE 0.9% 100 ML ONE (03:12)
[2021-05-12 03:15] LABS: BASOPHILS % (AUTO) 0.5 % (0.0-5.0); EOSINOPHILS % (AUTO) 0.5 % (0.0-8.0); HEMATOCRIT 32.9 % (42-54); MEAN CORPUSCULAR HGB CONC 31.6 g/dL (32.0-36.0); MEAN CORPUSCULAR VOLUME 104.4 fL (79-99); MONOCYTES % (AUTO) 5.9 % (3.0-13.0); NEUTROPHILS % (AUTO) 84.5 % (40.0-77.0); PLATELET COUNT (AUTO) 63 K/uL (130-400); RED BLOOD CELL COUNT(AUTO) 3.15 MIL/uL (4.50-6.20); RED CELL DISTRIBUTION WIDTH 16.4 % (11.0-15.5); WHITE BLOOD COUNT (AUTO) 8.4 K/uL (4.8-10.8)
[2021-05-12 03:22] LABS: CREATININE 1.8 mg/dL (0.5-1.5); POTASSIUM 4.1 mmol/L (3.5-5.1)
[2021-05-12 03:27] LABS: BILIRUBIN,TOTAL 1.1 mg/dL (0.2-1.0); TOTAL PROTEIN, SERUM 6.8 g/dL (6.0-8.3)
[2021-05-12 03:42] LABS: INR 1.17 (0.85-1.15); PROTHROMBIN TIME 12.6 SEC (9.6-11.6)
[2021-05-12] MEDS ORDERED: AZITHROMYCIN 500MG VIAL IVPB ONE (03:45)
[2021-05-12] MEDS ORDERED: 0.9% SODIUM CHLORIDE 250 ML IV BAG IV ONE (03:45)
[2021-05-12 03:57] LABS: PLATELET MORPHOLOGY COMMENT MARKED DECREASE
[2021-05-12] MEDS ORDERED: AZITHROMYCIN 500MG+NS 250ML 250 ML IV ONE (04:06)
[2021-05-12] MEDS ORDERED: ACETAMINOPHEN 325 MG TAB PO PRN ×2 (04:45)
[2021-05-12] MEDS: CEFTRIAXONE 1G VIAL IV SCH (04:45)
[2021-05-12] MEDS ORDERED: AZITHROMYCIN 500MG VIAL IVPB SCH ×2 (04:45→09:15)
[2021-05-12] MEDS ORDERED: 0.9% SODIUM CHLORIDE 250 ML IV BAG IVPB SCH ×2 (04:45→09:15)
[2021-05-12] MEDS ORDERED: ONDANSETRON 4MG INJ IV PRN (04:45)
[2021-05-12] MEDS: SODIUM CHLORIDE 0.9% 1000ML 1,000 ML IV SCH ×2 (04:45→21:48)
[2021-05-12] MEDS ORDERED: MORPHINE 2 MG SYG (2MG/1ML) IV PRN (04:45)
[2021-05-12] MEDS ORDERED: AZITHROMYCIN 500MG+NS 250ML 250 ML IV SCH (05:06)
[2021-05-12 06:50] LABS: BASOPHILS % (AUTO) 0.4 % (0.0-5.0); EOSINOPHILS % (AUTO) 0.3 % (0.0-8.0); HEMATOCRIT 32.9 % (42-54); LYMPHOCYTES % (AUTO) 6.8 % (21.0-51.0); MEAN CORPUSCULAR HEMOGLOBIN 32.7 pg (27.0-33.0); MEAN CORPUSCULAR HGB CONC 31.6 g/dL (32.0-36.0); MEAN CORPUSCULAR VOLUME 103.5 fL (79-99); NEUTROPHILS % (AUTO) 85.5 % (40.0-77.0); PLATELET COUNT (AUTO) 58 K/uL (130-400); RED BLOOD CELL COUNT(AUTO) 3.18 MIL/uL (4.50-6.20); RED CELL DISTRIBUTION WIDTH 16.4 % (11.0-15.5); WHITE BLOOD COUNT (AUTO) 11.5 K/uL (4.8-10.8)
[2021-05-12 07:06] LABS: HEMOGLOBIN A1C 6.5 % (4.0-6.0)
[2021-05-12 07:09] LABS: CREATININE 1.7 mg/dL (0.5-1.5); CRP QUANTITATIVE 68.7 mg/L (0.00-9.0); POTASSIUM 4.6 mmol/L (3.5-5.1); TOTAL PROTEIN, SERUM 7.2 g/dL (6.0-8.3)
[2021-05-12] MEDS ORDERED: GUAIFENESIN-CODEINE 5 ML SYRUP PO PRN (07:15)
[2021-05-12] MEDS ORDERED: SODIUM CHLORIDE 0.9% 1000ML 1,000 ML IV ONE (13:59)
[2021-05-12] MEDS: ENOXAPARIN SODIUM 40 MG/0.4 ML SYRINGE SQ SCH (14:13)
[2021-05-12] MEDS: FAMOTIDINE 20MG TAB 20 MG TAB PO SCH ×2 (14:13→21:48)
[2021-05-12] MEDS: AZITHROMYCIN 500MG+NS 250ML 250 ML IV SCH (14:14)
[2021-05-13] VITALS (8 sets, daily range): BP systolic 107–166; BP diastolic 59–116
[2021-05-13] MEDS: SODIUM CHLORIDE 0.9% 1000ML 1,000 ML IV SCH ×3 (00:45→20:45)
[2021-05-13] MEDS ORDERED: CEFD300C3 PO (06:08)
[2021-05-13] MEDS ORDERED: GUAI5SYR PO (06:13)
[2021-05-13] MEDS ORDERED: GLUCAGON 1MG KIT 1 MG ML IM PRN (06:15)
[2021-05-13] MEDS ORDERED: DEXTROSE 50%-WATER 50 ML DISP.SYRIN IV PRN (06:15)
[2021-05-13] MEDS: CEFTRIAXONE 1G VIAL IV SCH (06:15)
[2021-05-13 06:21] LABS: BASOPHILS % (AUTO) 0.9 % (0.0-5.0); EOSINOPHILS % (AUTO) 2.4 % (0.0-8.0); HEMATOCRIT 35.3 % (42-54); LYMPHOCYTES % (AUTO) 21.1 % (21.0-51.0); MEAN CORPUSCULAR HEMOGLOBIN 32.2 pg (27.0-33.0); MEAN CORPUSCULAR HGB CONC 30.6 g/dL (32.0-36.0); MEAN CORPUSCULAR VOLUME 105.4 fL (79-99); MONOCYTES % (AUTO) 9.5 % (3.0-13.0); NEUTROPHILS % (AUTO) 65.7 % (40.0-77.0); PLATELET COUNT (AUTO) 65 K/uL (130-400); RED BLOOD CELL COUNT(AUTO) 3.35 MIL/uL (4.50-6.20); RED CELL DISTRIBUTION WIDTH 16.7 % (11.0-15.5); WHITE BLOOD COUNT (AUTO) 6.7 K/uL (4.8-10.8)
[2021-05-13 06:29] LABS: CREATININE 1.6 mg/dL (0.5-1.5); POTASSIUM 4.4 mmol/L (3.5-5.1)
[2021-05-13] MEDS: INSULIN HUMULIN R 100 UNIT/ML 3ML SQ SCH ×4 (07:30→21:00)
[2021-05-13] MEDS: ASPIRIN 81MG CHEW TAB PO SCH (09:27)
[2021-05-13] MEDS: FOLIC ACID 1 MG TABLET PO SCH (09:27)
[2021-05-13] MEDS: LISINOPRIL 20 MG TABLET PO SCH (09:27)
[2021-05-13] MEDS: AZITHROMYCIN 500MG+NS 250ML 250 ML IV SCH (09:27)
[2021-05-13] MEDS: ENOXAPARIN SODIUM 40 MG/0.4 ML SYRINGE SQ SCH (09:27)
[2021-05-13] MEDS: FAMOTIDINE 20MG TAB 20 MG TAB PO SCH ×2 (09:27→22:15)
[2021-05-13] MEDS: ATORVASTATIN 10 MG TABLET PO SCH (22:15)
[2021-05-14 04:18] VITALS: BP 133/53
[2021-05-14] MEDS: CEFTRIAXONE 1G VIAL IV SCH (05:14)
[2021-05-14] MEDS: INSULIN HUMULIN R 100 UNIT/ML 3ML SQ SCH ×4 (05:23→20:38)
[2021-05-14] MEDS: SODIUM CHLORIDE 0.9% 1000ML 1,000 ML IV SCH ×2 (06:45→16:45)
[2021-05-14 08:00] VITALS: BP 122/67
[2021-05-14] MEDS ORDERED: SODIUM CHLORIDE 0.9% 250 ML ONE (10:11)
[2021-05-14] MEDS: FOLIC ACID 1 MG TABLET PO SCH (10:12)
[2021-05-14] MEDS: ASPIRIN 81MG CHEW TAB PO SCH (10:12)
[2021-05-14] MEDS: AZITHROMYCIN 500MG+NS 250ML 250 ML IV SCH (10:12)
[2021-05-14] MEDS: FAMOTIDINE 20MG TAB 20 MG TAB PO SCH ×2 (10:12→20:37)
[2021-05-14] MEDS: LISINOPRIL 20 MG TABLET PO SCH (10:13)
[2021-05-14] MEDS: ENOXAPARIN SODIUM 40 MG/0.4 ML SYRINGE SQ SCH (10:13)
[2021-05-14 12:00] VITALS: BP 139/89
[2021-05-14 16:00] VITALS: BP 140/75
[2021-05-14 20:12] VITALS: BP 148/81
[2021-05-14] MEDS: ATORVASTATIN 10 MG TABLET PO SCH (20:37)
[2021-05-14 23:35] VITALS: BP 127/79
[2021-05-15 04:18] LABS: EOSINOPHILS % (AUTO) 3.8 % (0.0-8.0); HEMATOCRIT 33.3 % (42-54); LYMPHOCYTES % (AUTO) 30.4 % (21.0-51.0); MEAN CORPUSCULAR HEMOGLOBIN 32.7 pg (27.0-33.0); MEAN CORPUSCULAR HGB CONC 31.8 g/dL (32.0-36.0); MEAN CORPUSCULAR VOLUME 102.8 fL (79-99); MONOCYTES % (AUTO) 6.6 % (3.0-13.0); NEUTROPHILS % (AUTO) 57.9 % (40.0-77.0); PLATELET COUNT (AUTO) 72 K/uL (130-400); RED BLOOD CELL COUNT(AUTO) 3.24 MIL/uL (4.50-6.20); WHITE BLOOD COUNT (AUTO) 3.9 K/uL (4.8-10.8)
[2021-05-15] MEDS: CEFTRIAXONE 1G VIAL IV SCH (04:24)
[2021-05-15 04:34] LABS: ALBUMIN 2.1 g/dL (3.5-5.0); BILIRUBIN,TOTAL 0.9 mg/dL (0.2-1.0); CREATININE 1.3 mg/dL (0.5-1.5); POTASSIUM 4.3 mmol/L (3.5-5.1); TOTAL PROTEIN, SERUM 7.6 g/dL (6.0-8.3)
[2021-05-15 04:46] VITALS: BP 117/57
[2021-05-15] MEDS: INSULIN HUMULIN R 100 UNIT/ML 3ML SQ SCH ×4 (07:30→20:31)
[2021-05-15 07:37] VITALS: BP 124/62
[2021-05-15] MEDS ORDERED: SODIUM CHLORIDE 0.9% 250 ML ONE (08:21)
[2021-05-15] MEDS: ENOXAPARIN SODIUM 40 MG/0.4 ML SYRINGE SQ SCH (08:48)
[2021-05-15] MEDS: FOLIC ACID 1 MG TABLET PO SCH (08:48)
[2021-05-15] MEDS: FAMOTIDINE 20MG TAB 20 MG TAB PO SCH ×2 (08:48→20:31)
[2021-05-15] MEDS: AZITHROMYCIN 500MG+NS 250ML 250 ML IV SCH (08:48)
[2021-05-15] MEDS: ASPIRIN 81MG CHEW TAB PO SCH (08:48)
[2021-05-15 10:59] VITALS: BP 125/54
[2021-05-15 16:03] VITALS: BP 127/58
[2021-05-15 19:00] VITALS: BP 136/65
[2021-05-15] MEDS: ATORVASTATIN 10 MG TABLET PO SCH (20:31)
[2021-05-15 23:47] VITALS: BP 146/69
[2021-05-16 04:00] VITALS: BP 141/75
[2021-05-16 05:08] LABS: BASOPHILS % (AUTO) 0.6 % (0.0-5.0); EOSINOPHILS % (AUTO) 3.7 % (0.0-8.0); HEMATOCRIT 31.6 % (42-54); LYMPHOCYTES % (AUTO) 31.2 % (21.0-51.0); MEAN CORPUSCULAR HEMOGLOBIN 31.7 pg (27.0-33.0); MEAN CORPUSCULAR HGB CONC 31.3 g/dL (32.0-36.0); MEAN CORPUSCULAR VOLUME 101.3 fL (79-99); MONOCYTES % (AUTO) 9.7 % (3.0-13.0); NEUTROPHILS % (AUTO) 54.5 % (40.0-77.0); PLATELET COUNT (AUTO) 68 K/uL (130-400); RED BLOOD CELL COUNT(AUTO) 3.12 MIL/uL (4.50-6.20); RED CELL DISTRIBUTION WIDTH 15.9 % (11.0-15.5); WHITE BLOOD COUNT (AUTO) 3.2 K/uL (4.8-10.8)
[2021-05-16 05:26] LABS: CREATININE 1.2 mg/dL (0.5-1.5); POTASSIUM 4.2 mmol/L (3.5-5.1); TOTAL PROTEIN, SERUM 7.3 g/dL (6.0-8.3)
[2021-05-16] MEDS: INSULIN HUMULIN R 100 UNIT/ML 3ML SQ SCH ×3 (06:12→20:31)
[2021-05-16] MEDS: CEFTRIAXONE 1G VIAL IV SCH (06:13)
[2021-05-16 07:11] VITALS: BP 132/75
[2021-05-16 11:24] VITALS: BP 118/59
[2021-05-16] MEDS: FOLIC ACID 1 MG TABLET PO SCH (11:27)
[2021-05-16] MEDS: ASPIRIN 81MG CHEW TAB PO SCH (11:27)
[2021-05-16] MEDS: FAMOTIDINE 20MG TAB 20 MG TAB PO SCH ×2 (11:27→20:21)
[2021-05-16] MEDS: ENOXAPARIN SODIUM 40 MG/0.4 ML SYRINGE SQ SCH (11:28)
[2021-05-16] MEDS: AZITHROMYCIN 500MG+NS 250ML 250 ML IV SCH (11:28)
[2021-05-16 15:14] VITALS: BP 116/61
[2021-05-16 20:00] VITALS: BP 124/83
[2021-05-16] MEDS: ATORVASTATIN 10 MG TABLET PO SCH (20:21)
[2021-05-17] VITALS: BP 159/80
[2021-05-17 04:00] VITALS: BP 110/56
[2021-05-17] MEDS: CEFTRIAXONE 1G VIAL IV SCH (04:21)
[2021-05-17 05:13] LABS: BASOPHILS % (AUTO) 0.6 % (0.0-5.0); EOSINOPHILS % (AUTO) 4.4 % (0.0-8.0); HEMATOCRIT 30.7 % (42-54); LYMPHOCYTES % (AUTO) 28.8 % (21.0-51.0); MEAN CORPUSCULAR HEMOGLOBIN 32.1 pg (27.0-33.0); MEAN CORPUSCULAR HGB CONC 31.9 g/dL (32.0-36.0); MEAN CORPUSCULAR VOLUME 100.7 fL (79-99); MONOCYTES % (AUTO) 9.7 % (3.0-13.0); NEUTROPHILS % (AUTO) 56.2 % (40.0-77.0); PLATELET COUNT (AUTO) 64 K/uL (130-400); RED BLOOD CELL COUNT(AUTO) 3.05 MIL/uL (4.50-6.20); RED CELL DISTRIBUTION WIDTH 15.6 % (11.0-15.5); WHITE BLOOD COUNT (AUTO) 3.2 K/uL (4.8-10.8)
[2021-05-17 05:49] LABS: BILIRUBIN,TOTAL 0.9 mg/dL (0.2-1.0); CREATININE 1.1 mg/dL (0.5-1.5); TOTAL PROTEIN, SERUM 7.3 g/dL (6.0-8.3)
[2021-05-17] MEDS: INSULIN HUMULIN R 100 UNIT/ML 3ML SQ SCH (06:35)
[2021-05-17 08:00] VITALS: BP 110/66
[2021-05-17] MEDS: ENOXAPARIN SODIUM 40 MG/0.4 ML SYRINGE SQ SCH (09:00)
[2021-05-17] MEDS: ASPIRIN 81MG CHEW TAB PO SCH (09:29)
[2021-05-17] MEDS: FAMOTIDINE 20MG TAB 20 MG TAB PO SCH (09:29)
[2021-05-17] MEDS: FOLIC ACID 1 MG TABLET PO SCH (09:29)
[2021-05-17 11:57] VITALS: BP 135/77
== END 2021-05-17 12:00 | disposition home or self-care (01) | DRG 689 ==
LOC: EDH 05-12 00:21 → EDHIP 05-12 00:22 → 2DH 05-13 13:39 → 3AH 05-15 10:43
PROVIDERS: ADMIT Internal Medicine; ATTEND Internal Medicine
DX: N39.0 Urinary tract infection, site not specified (principal); J18.9 Pneumonia, unspecified organism; Z68.44 Body mass index [BMI] 60.0-69.9, adult; N17.9 Acute kidney failure, unspecified; E66.01 Morbid (severe) obesity due to excess calories; Z20.822 Contact with and (suspected) exposure to COVID-19; I10 Essential (primary) hypertension; E11.9 Type 2 diabetes mellitus without complications; F17.200 Nicotine dependence, unspecified, uncomplicated; Z82.0 Family history of epilepsy and other diseases of the nervous system; E78.5 Hyperlipidemia, unspecified; B96.4 Proteus (mirabilis) (morganii) as the cause of diseases classified elsewhere; Z91.19 Patient's noncompliance with other medical treatment and regimen
CPT/HCPCS: 36415; 36600; 71045; 71250; 80048; 80053; 81001; 82803; 82948; 83036; 83605; 83690; 83880; 84145; 85025; 85610; 86140; 86850; 86900; 86901; 87040; 87077; 87088; 87186; 87635; 87804; 87880; 93005; C9803; G0378; J0456; J0696; J1650; J1815; J7030; J7050

== ENCOUNTER 2022-05-21 22:32 | Inpatient (IN) | payer OTHER ==
[~2022-05-21] VITALS: Ht 177.8 cm; Wt 233.6 kg
[~2022-05-21 22:32] MED LIST changes: +CEFD300C3 PO; -CEPH500B PO; -DOXY100T2 PO; +GUAI5SYR PO
[2022-05-22] VITALS (46 sets, daily range): BP systolic 54–154; BP diastolic 26–97
[2022-05-22] MEDS ORDERED: 0.9%NACL 1000ML 1,000 ML IV ONE
[2022-05-22] MEDS ORDERED: ZOSYN 3.375GM +NS 50ML IV SCH
[2022-05-22] MEDS ORDERED: VANCOMYCIN 1G VIAL IVPB ONE
[2022-05-22 00:28] LABS: CREATININE 2.9 mg/dL (0.5-1.5); POTASSIUM 3.9 mmol/L (3.5-5.1)
[2022-05-22 00:30] LABS: BASOPHILS % (AUTO) 0.4 % (0.0-5.0); EOSINOPHILS % (AUTO) 0.3 % (0.0-8.0); HEMATOCRIT 29.2 % (42-54); LYMPHOCYTES % (AUTO) 9.2 % (21.0-51.0); MEAN CORPUSCULAR HEMOGLOBIN 35.3 pg (27.0-33.0); MEAN CORPUSCULAR HGB CONC 32.9 g/dL (32.0-36.0); MEAN CORPUSCULAR VOLUME 107.4 fL (79-99); MONOCYTES % (AUTO) 2.8 % (3.0-13.0); NEUTROPHILS % (AUTO) 86.9 % (40.0-77.0); PLATELET COUNT (AUTO) 69 K/uL (130-400); RED BLOOD CELL COUNT(AUTO) 2.72 MIL/uL (4.50-6.20); RED CELL DISTRIBUTION WIDTH 14.7 % (11.0-15.5); WHITE BLOOD COUNT (AUTO) 7.6 K/uL (4.8-10.8)
[2022-05-22 00:37] LABS: ALBUMIN 1.7 g/dL (3.5-5.0); BILIRUBIN,TOTAL 1.5 mg/dL (0.2-1.0); TOTAL PROTEIN, SERUM 6.4 g/dL (6.0-8.3)
[2022-05-22 00:38] LABS: ABG BASE EXCESS -8.7 mmol/L (-2.0-3.0); ABG HCO3 15.2 mmol/L (21.0-28.0); ABG OXYGEN SATURATION 94.7 % (95.0-99.0); ABG PCO2 26 mmHg (35-48)
[2022-05-22 00:41] LABS: B-TYPE NATRIURETIC PEPTIDE 59 pg/mL (0-100)
[2022-05-22] MEDS ORDERED: ONDANSETRON 4MG INJ IV PRN (01:00)
[2022-05-22] MEDS ORDERED: ACETAMINOPHEN 325 MG TAB PO PRN (01:00)
[2022-05-22] MEDS ORDERED: MORPHINE 4 MG SYG IV PRN (01:00)
[2022-05-22] MEDS ORDERED: VANCOMYCIN PROTOCOL PER PHARMACY IV PRN (01:00)
[2022-05-22] MEDS ORDERED: 0.9%NACL 1000ML 2,190 ML IV ONE (01:00)
[2022-05-22] MEDS ORDERED: CEFEPIME HCL 2 GM VIAL IVP SCH (01:00)
[2022-05-22] MEDS ORDERED: MORPHINE 2 MG SYG IV PRN (01:00)
[2022-05-22 01:06] LABS: PLATELET MORPHOLOGY COMMENT DECREASED
[2022-05-22] MEDS: NOREPINEPHRIN 4MG/NS 250ML 250 ML IV SCH ×10 (01:08→13:41)
[2022-05-22] MEDS ORDERED: 0.9%NACL 1000ML 1,000 ML IV SCH (01:30)
[2022-05-22 05:44] LABS: HEMOGLOBIN A1C 5.8 % (4.0-6.0)
[2022-05-22] MEDS: INSULIN HUMULIN R 100 UNIT/ML 3ML SQ SCH ×4 (07:30→21:00)
[2022-05-22] MEDS ORDERED: HEPARIN 5,000 UNIT VIAL SQ SCH (09:00)
[2022-05-22] MEDS ORDERED: VANCOMYCIN 2GM/500 ML BAG 500 ML IV SCH (09:00)
[2022-05-22] MEDS: FAMOTIDINE 20MG VIAL IV SCH (09:36)
[2022-05-22] MEDS: MEROPENEM 500 MG VIAL IVP SCH ×2 (11:34→22:33)
[2022-05-22 11:37] LABS: CREATININE 3.2 mg/dL (0.5-1.5); POTASSIUM 4.5 mmol/L (3.5-5.1)
[2022-05-22 11:42] LABS: BASOPHILS % (AUTO) 0.6 % (0.0-5.0); EOSINOPHILS % (AUTO) 0.2 % (0.0-8.0); HEMATOCRIT 35.8 % (42-54); LYMPHOCYTES % (AUTO) 3.2 % (21.0-51.0); MEAN CORPUSCULAR HEMOGLOBIN 35.2 pg (27.0-33.0); MEAN CORPUSCULAR HGB CONC 31.6 g/dL (32.0-36.0); MEAN CORPUSCULAR VOLUME 111.5 fL (79-99); MONOCYTES % (AUTO) 3.1 % (3.0-13.0); NEUTROPHILS % (AUTO) 91.9 % (40.0-77.0); PLATELET COUNT (AUTO) 169 K/uL (130-400); RED BLOOD CELL COUNT(AUTO) 3.21 MIL/uL (4.50-6.20); RED CELL DISTRIBUTION WIDTH 15.5 % (11.0-15.5); WHITE BLOOD COUNT (AUTO) 27.7 K/uL (4.8-10.8)
[2022-05-22 11:46] LABS: ALBUMIN 1.9 g/dL (3.5-5.0); BILIRUBIN,TOTAL 2.3 mg/dL (0.2-1.0); CRP QUANTITATIVE 138.3 mg/L (0.00-9.0); TOTAL PROTEIN, SERUM 7.5 g/dL (6.0-8.3)
[2022-05-22 11:58] LABS: ABG BASE EXCESS -16.6 mmol/L (-2.0-3.0); ABG HCO3 12.5 mmol/L (21.0-28.0); ABG OXYGEN SATURATION 89.4 % (95.0-99.0); ABG PCO2 42 mmHg (35-48)
[2022-05-22 11:59] LABS: INR 1.22 (0.85-1.15); PROTHROMBIN TIME 13.1 SEC (9.6-11.6)
[2022-05-22 12:00] LABS: PARTIAL THROMBOPLASTIN TIME 29.9 SEC (26.3-35.5)
[2022-05-22] MEDS ORDERED: SODIUM BICARB 50MEQ 50ML VIAL IV SCH ×5 (12:00→23:45)
[2022-05-22] MEDS ORDERED: DEXTROSE 5 % AND 0.9 % NACL 1,000 ML IV SCH (12:00)
[2022-05-22] MEDS ORDERED: SODIUM BICARB 50MEQ 50ML VIAL 100 ML ONE (12:03)
[2022-05-22] MEDS ORDERED: SODIUM BICARB 50MEQ 50ML VIAL 150 ML ONE (12:13)
[2022-05-22] MEDS ORDERED: NOREPINEPHRINE 16MG/NS 250ML PREMIX IV SCH (12:30)
[2022-05-22] MEDS: SODIUM BICARB 50MEQ 50ML VIAL IV SCH ×2 (12:38→16:52)
[2022-05-22 12:51] LABS: ERYTHROCYTE SEDIMENTATION RATE 60 MM/HR (0-20)
[2022-05-22] MEDS: SODIUM BICARB 8.4% 50ML SYRING 150 MEQ in DEXTROSE 5%-WATER 1,000 ML IVP SCH ×3 (13:40→23:41)
[2022-05-22] MEDS: LINEZOLID 600 MG/ISO-OSM 300 ML IV SCH (13:40)
[2022-05-22] MEDS: MIDODRINE HCL 5 MG TABLET PO SCH ×2 (13:40→20:24)
[2022-05-22] MEDS: NOREPINEPHRINE 16MG/NS 250ML 250 ML IV SCH ×4 (14:08→18:58)
[2022-05-22 15:17] LABS: HEMATOCRIT 35.7 % (42-54); MEAN CORPUSCULAR HEMOGLOBIN 35.5 pg (27.0-33.0); MEAN CORPUSCULAR HGB CONC 31.7 g/dL (32.0-36.0); MEAN CORPUSCULAR VOLUME 112.3 fL (79-99); PLATELET COUNT (AUTO) 169 K/uL (130-400); RED BLOOD CELL COUNT(AUTO) 3.18 MIL/uL (4.50-6.20); RED CELL DISTRIBUTION WIDTH 15.5 % (11.0-15.5); WHITE BLOOD COUNT (AUTO) 29.5 K/uL (4.8-10.8)
[2022-05-22 15:21] LABS: % IRON SATURATION 12.7 % (30-44)
[2022-05-22 15:37] LABS: ABG BASE EXCESS -16.9 mmol/L (-2.0-3.0); ABG HCO3 11.9 mmol/L (21.0-28.0); ABG OXYGEN SATURATION 89.6 % (95.0-99.0); ABG PCO2 39 mmHg (35-48)
[2022-05-22 15:48] LABS: LACTATE DEHYDROGENASE 229 U/L (81-234)
[2022-05-22] MEDS ORDERED: HYDR25TA PO (16:07)
[2022-05-22 20:09] LABS: ABG BASE EXCESS -15.1 mmol/L (-2.0-3.0); ABG HCO3 13.1 mmol/L (21.0-28.0); ABG OXYGEN SATURATION 96.8 % (95.0-99.0); ABG PCO2 39 mmHg (35-48)
[2022-05-22 21:19] LABS: ALBUMIN 1.9 g/dL (3.5-5.0); BILIRUBIN,TOTAL 1.8 mg/dL (0.2-1.0); CREATININE 3.5 mg/dL (0.5-1.5); POTASSIUM 4.4 mmol/L (3.5-5.1); TOTAL PROTEIN, SERUM 7.5 g/dL (6.0-8.3)
[2022-05-22] MEDS ORDERED: DEXMEDETOMIDINE 400MCG/NS100ML IV SCH (21:30)
[2022-05-22] MEDS: 0.9%NACL 1000ML 1,000 ML IV SCH ×2 (21:32→21:34)
[2022-05-22] MEDS: NOREPINEPHRINE BITARTRATE 32 MG in 0.9% NACL 250ML 250 ML IV SCH ×2 (22:41→23:51)
[2022-05-22 22:45] LABS: ABG BASE EXCESS -16.5 mmol/L (-2.0-3.0); ABG HCO3 11.6 mmol/L (21.0-28.0); ABG OXYGEN SATURATION 94.9 % (95.0-99.0); ABG PCO2 36 mmHg (35-48)
[2022-05-22] MEDS: NICOTINE 21 MG/ 24 HR PATCH TD SCH (23:05)
[2022-05-22] MEDS ORDERED: LORAZEPAM 2 MG/ML 1 ML VIAL IVP PRN (23:30)
[2022-05-22] MEDS ORDERED: LACTATED RINGERS 1000ML 500 ML IV ONE (23:30)
[2022-05-23] VITALS (60 sets, daily range): BP systolic 33–142; BP diastolic 20–107
[2022-05-23 02:16] LABS: ABG BASE EXCESS -11.8 mmol/L (-2.0-3.0); ABG HCO3 15.3 mmol/L (21.0-28.0); ABG OXYGEN SATURATION 96.3 % (95.0-99.0); ABG PCO2 39 mmHg (35-48)
[2022-05-23] MEDS: SODIUM BICARB 50MEQ 50ML VIAL IV PRN ×3 (02:34→11:56)
[2022-05-23] MEDS: LINEZOLID 600 MG/ISO-OSM 300 ML IV SCH ×2 (02:37→11:55)
[2022-05-23 04:34] LABS: CREATININE 4.1 mg/dL (0.5-1.5); MAGNESIUM 1.5 mg/dL (1.80-2.40); PHOSPHORUS 8.7 mg/dL (2.5-4.9); POTASSIUM 4.6 mmol/L (3.5-5.1)
[2022-05-23] MEDS: NOREPINEPHRINE BITARTRATE 32 MG in 0.9% NACL 250ML 250 ML IV SCH ×12 (05:24→18:20)
[2022-05-23] MEDS: VASOPRESSIN 40 UNITS in 0.9%NACL 50ML 40 ML IV SCH ×3 (05:27→12:43)
[2022-05-23 05:44] LABS: ABG BASE EXCESS -12.1 mmol/L (-2.0-3.0); ABG HCO3 15.1 mmol/L (21.0-28.0); ABG PCO2 39 mmHg (35-48)
[2022-05-23 05:49] LABS: EOSINOPHILS % (AUTO) 0.1 % (0.0-8.0); HEMATOCRIT 33.3 % (42-54); LYMPHOCYTES % (AUTO) 4.3 % (21.0-51.0); MEAN CORPUSCULAR HEMOGLOBIN 35.4 pg (27.0-33.0); MEAN CORPUSCULAR HGB CONC 32.1 g/dL (32.0-36.0); MEAN CORPUSCULAR VOLUME 110.3 fL (79-99); MONOCYTES % (AUTO) 4.3 % (3.0-13.0); NEUTROPHILS % (AUTO) 84.2 % (40.0-77.0); PLATELET COUNT (AUTO) 148 K/uL (130-400); RED BLOOD CELL COUNT(AUTO) 3.02 MIL/uL (4.50-6.20); RED CELL DISTRIBUTION WIDTH 16.2 % (11.0-15.5)
[2022-05-23] MEDS: PHENYLEPHRINE HCL 100 MG in 0.9% NACL 250ML 250 ML IV SCH ×5 (06:35→18:22)
[2022-05-23 06:58] LABS: WHITE BLOOD COUNT (AUTO) 43.6 K/uL (4.8-10.8)
[2022-05-23] MEDS: INSULIN HUMULIN R 100 UNIT/ML 3ML SQ SCH ×3 (07:30→15:45)
[2022-05-23 08:34] LABS: BAND NEUTROPHILS % (MANUAL) 38 % (0-2); LYMPHOCYTES % (MANUAL) 1 % (22-44); MAN.DIFF COMMENT-IMPRESSION MANUAL DIFFERENTIAL; MONOCYTES % (MANUAL) 8 % (2-9); PLATELET MORPHOLOGY COMMENT ADEQUATE; SEGMENTED NEUTROPHILS % 53 % (40-70)
[2022-05-23] MEDS ORDERED: DEXTROSE 50%-WATER 50 ML DISP.SYRIN IV ONE ×5 (09:11→15:30)
[2022-05-23 09:33] LABS: ABG BASE EXCESS -13.5 mmol/L (-2.0-3.0); ABG HCO3 15.7 mmol/L (21.0-28.0); ABG OXYGEN SATURATION 96.6 % (95.0-99.0); ABG PCO2 53 mmHg (35-48)
[2022-05-23] MEDS ORDERED: MAGNESIUM 2GM PREMIX 50ML 50 ML IV ONE (09:45)
[2022-05-23 09:59] LABS: MEAN CORPUSCULAR HGB CONC 31.5 g/dL (32.0-36.0); NUCLEATED RED BLOOD CELLS 0.3 % (0.0-0.19); RED BLOOD CELL COUNT(AUTO) 2.28 MIL/uL (4.50-6.20); RED CELL DISTRIBUTION WIDTH 16.2 % (11.0-15.5)
[2022-05-23] MEDS ORDERED: MAGNESIUM 2GM PREMIX 50ML 50 ML IV SCH (10:00)
[2022-05-23] MEDS ORDERED: SODIUM BICARB 50MEQ 50ML VIAL IV SCH ×4 (10:00→15:30)
[2022-05-23 10:05] LABS: WHITE BLOOD COUNT (AUTO) 37.1 K/uL (4.8-10.8)
[2022-05-23 10:24] LABS: ALBUMIN 1.2 g/dL (3.5-5.0); BILIRUBIN,TOTAL 1.5 mg/dL (0.2-1.0); CREATININE 4.2 mg/dL (0.5-1.5); TOTAL PROTEIN, SERUM 5.1 g/dL (6.0-8.3)
[2022-05-23 10:25] LABS: POTASSIUM 6.3 mmol/L (3.5-5.1)
[2022-05-23] MEDS ORDERED: CACL 1GM SYG IVP ONE ×2 (10:30→10:40)
[2022-05-23] MEDS ORDERED: NOREPINEPHRINE IV ONE ×2 (10:30→10:40)
[2022-05-23] MEDS ORDERED: SODIUM BICARB 8.4% 50ML SYRINGE IVP ONE ×2 (10:30→10:40)
[2022-05-23] MEDS ORDERED: [UNRECOGNIZED DRUG - OTHER] IV ONE ×2 (10:30→10:40)
[2022-05-23] MEDS ORDERED: EPINEPHRINE 1MG SYG 10ML IVP ONE (10:40)
[2022-05-23 10:43] LABS: MAGNESIUM 1.6 mg/dL (1.80-2.40); PHOSPHORUS 9.2 mg/dL (2.5-4.9)
[2022-05-23 10:44] LABS: ABG HCO3 14.4 mmol/L (21.0-28.0); ABG OXYGEN SATURATION 99.3 % (95.0-99.0); ABG PCO2 39 mmHg (35-48)
[2022-05-23] MEDS ORDERED: INSULIN HUMULIN R 100 UNIT/ML 3ML IJ SCH (11:00)
[2022-05-23] MEDS ORDERED: KAYEXALATE 15GM/60ML PO SCH (11:00)
[2022-05-23] MEDS: MEROPENEM 500 MG VIAL IVP SCH (11:53)
[2022-05-23] MEDS: MIDODRINE HCL 5 MG TABLET PO SCH ×2 (11:53→13:08)
[2022-05-23] MEDS: FAMOTIDINE 20MG VIAL IV SCH (11:53)
[2022-05-23] MEDS: DEXTROSE 50%-WATER 50 ML DISP.SYRIN IV SCH ×2 (11:54→14:20)
[2022-05-23] MEDS: NICOTINE 21 MG/ 24 HR PATCH TD SCH (12:48)
[2022-05-23] MEDS: HYDROCORTISONE SOD SUCCINATE 100 MG/2 ML VIAL IM SCH ×2 (13:07→17:02)
[2022-05-23] MEDS: WATER IVP SCH ×2 (13:08→16:35)
[2022-05-23] MEDS: SYRING IVP SCH ×2 (13:08→16:35)
[2022-05-23] MEDS: SODIUM BICARB 8.4% IVP SCH ×2 (13:08→16:35)
[2022-05-23] MEDS: DEXTROSE 5% IVP SCH ×2 (13:08→16:35)
[2022-05-23 13:28] LABS: EOSINOPHILS % (AUTO) 0.2 % (0.0-8.0); HEMATOCRIT 28.8 % (42-54); LYMPHOCYTES % (AUTO) 5.2 % (21.0-51.0); MEAN CORPUSCULAR HEMOGLOBIN 36.3 pg (27.0-33.0); MEAN CORPUSCULAR HGB CONC 31.6 g/dL (32.0-36.0); MEAN CORPUSCULAR VOLUME 114.7 fL (79-99); MONOCYTES % (AUTO) 3.4 % (3.0-13.0); NEUTROPHILS % (AUTO) 85.9 % (40.0-77.0); NUCLEATED RED BLOOD CELLS 0.2 % (0.0-0.19); PLATELET COUNT (AUTO) 97 K/uL (130-400); RED BLOOD CELL COUNT(AUTO) 2.51 MIL/uL (4.50-6.20); RED CELL DISTRIBUTION WIDTH 16.8 % (11.0-15.5)
[2022-05-23] MEDS ORDERED: PHARMACY COMMUNICATION MISC SCH (14:00)
[2022-05-23 14:06] LABS: ALBUMIN 1.4 g/dL (3.5-5.0); CREATININE 4.4 mg/dL (0.5-1.5); POTASSIUM 5.5 mmol/L (3.5-5.1); TOTAL PROTEIN, SERUM 5.6 g/dL (6.0-8.3)
[2022-05-23 14:59] LABS: ABG BASE EXCESS -15.2 mmol/L (-2.0-3.0); ABG HCO3 13.3 mmol/L (21.0-28.0); ABG OXYGEN SATURATION 94.3 % (95.0-99.0); ABG PCO2 42 mmHg (35-48)
[2022-05-23] MEDS: EPINEPHRINE PF 1MG AMP 10 MG in 0.9% NACL 250ML 250 ML IV SCH ×3 (15:16→17:59)
[2022-05-23] MEDS ORDERED: CALCIUM GLUC 1GM/10ML VIAL ONE (15:18)
[2022-05-23] MEDS ORDERED: KAYEXALATE 15GM/60ML PO ONE (15:30)
[2022-05-23] MEDS ORDERED: CALCIUM GLUC 1GM 1 GM in 0.9%NACL 100ML 100 ML IV SCH (15:30)
[2022-05-23] MEDS ORDERED: INSULIN HUMULIN R 100 UNIT/ML 3ML IV ONE (15:30)
[2022-05-23] MEDS ORDERED: DEXTROSE 10%-WATER 1,000 ML IV SCH (15:30)
== END 2022-05-23 20:00 | DRG 871 ==
LOC: EDH 22:32 → EDHIP 22:33 → 2BH 05-22 10:07
PROVIDERS: ADMIT Internal Medicine; ATTEND Internal Medicine
PROC: 05HY33Z Insertion of Infusion Device into Upper Vein, Percutaneous Approach (ICD-10-PCS; 2022-05-22)
PROC: B54MZZA Ultrasonography of Right Upper Extremity Veins, Guidance (ICD-10-PCS; 2022-05-22)
PROC: 5A09357 Assistance with Respiratory Ventilation, Less than 24 Consecutive Hours, Continuous Positive Airway Pressure (ICD-10-PCS; 2022-05-22)
PROC: 5A1935Z Respiratory Ventilation, Less than 24 Consecutive Hours (ICD-10-PCS; principal; 2022-05-23)
PROC: 0BH17EZ Insertion of Endotracheal Airway into Trachea, Via Natural or Artificial Opening (ICD-10-PCS; 2022-05-23)
PROC: 5A12012 Performance of Cardiac Output, Single, Manual (ICD-10-PCS; 2022-05-23)
PROC: 5A09357 Assistance with Respiratory Ventilation, Less than 24 Consecutive Hours, Continuous Positive Airway Pressure (ICD-10-PCS; 2022-05-23)
PROC: 03HY33Z Insertion of Infusion Device into Upper Artery, Percutaneous Approach (ICD-10-PCS; 2022-05-23)
DX: A41.50 Gram-negative sepsis, unspecified (principal); R65.21 Severe sepsis with septic shock; J18.9 Pneumonia, unspecified organism; J96.02 Acute respiratory failure with hypercapnia; J96.01 Acute respiratory failure with hypoxia; N17.0 Acute kidney failure with tubular necrosis; Z68.45 Body mass index [BMI] 70 or greater, adult; L03.311 Cellulitis of abdominal wall; E87.4 Mixed disorder of acid-base balance; N39.0 Urinary tract infection, site not specified; Z20.822 Contact with and (suspected) exposure to COVID-19; I46.9 Cardiac arrest, cause unspecified; E86.0 Dehydration; Z83.3 Family history of diabetes mellitus; D69.59 Other secondary thrombocytopenia; F17.210 Nicotine dependence, cigarettes, uncomplicated; E78.00 Pure hypercholesterolemia, unspecified; I10 Essential (primary) hypertension; Z87.440 Personal history of urinary (tract) infections; E11.65 Type 2 diabetes mellitus with hyperglycemia; E66.01 Morbid (severe) obesity due to excess calories; E78.5 Hyperlipidemia, unspecified; K27.9 Peptic ulcer, site unspecified, unspecified as acute or chronic, without hemorrhage or perforation; E87.5 Hyperkalemia; E88.09 Other disorders of plasma-protein metabolism, not elsewhere classified; E11.649 Type 2 diabetes mellitus with hypoglycemia without coma; Z66 Do not resuscitate
CPT/HCPCS: 31500; 36415; 36556; 36600; 36620; 71045; 76705; 76770; 80048; 80053; 82140; 82435; 82533; 82550; 82607; 82803; 82947; 82948; 83036; 83540; 83550; 83605; 83615; 83735; 83880; 84100; 84132; 84145; 84295; 84484; 85018; 85025; 85027; 85384; 85610; 85651; 85730; 86140; 86334; 86480; 86738; 86850; 86900; 86901; 87040; 87070; 87071; 87076; 87077; 87116; 87186; 87205; 87206; 87635; 87804; 92950; 93005; 94002; 94660; G0378; J0171; J0610; J0692; J1720; J1815; J2020; J2185; J2270; J2370; J2405; J3475; J3490; J7030; J7050; J7070